=== PATIENT | male | born 1945 | race Caucasian/White ===

== ENCOUNTER 2020-03-25 09:03 | Emergency (ER) | payer MEDICARE, SELFPAY ==
[2020-03-25 09:27] VITALS: BP 129/76; PULSE 60; RESP 11; BMI 23.2
[2020-03-25] MEDS: ondansetron HCL 4 MG/2 ML VIAL IVPUSH (09:46)
[2020-03-25] MEDS: Morphine Sulfate 4 MG/ML CARTRIDGE 2 MG IVPUSH (09:46)
[2020-03-25 09:55] VITALS: BP 114/59; PULSE 59; RESP 11; TEMP 36.8; O2SAT 97
[2020-03-25] MEDS: propofoL 200 MG/20 ML VIAL 100 MG IVPUSH (10:00)
--- NOTE | 2020-03-25 10:02 | XR_ITS ---
EXAMINATION: XR SHOULDER, RIGHT CLINICAL INFORMATION: Post reduction. COMPARISON: None TECHNIQUE: Two views of the right shoulder. FINDINGS: There is normal glenohumeral alignment without any fracture, dislocation or subluxation. The AC joint appears unremarkable. The soft tissues are normal. XR/XR shoulder RT min 2V IMPRESSION: Unremarkable right shoulder joint.
--- NOTE | 2020-03-25 10:02 | ED.EXTPRO ---
HPI - Extremity Problem General Chief complaint: Extremity Injury, Upper Stated complaint: shoulder dislocation Time Seen by Provider: 03/25/20 09:39 Source: patient Mode of arrival: ambulatory Limitations: no limitations History of Present Illness HPI Narrative: patient while cleaning the kitchen lost balance and fell with an extended right hand and dislocated his right shoulder this happened her 1st time. Patient went to [facility] read the x-ray which showed any fracture pain. Patient denies any other injury MD Complaint: extremity pain Onset (ago): hour(s) (3) Pain Consistency: constant Location: right Related Data Home Medications Medication Instructions Recorded Confirmed gabapentin 03/25/20 omeprazole 03/25/20 vitamin A-vitamin D3 03/25/20 03/25/20 Allergies Allergy/AdvReac Type Severity Reaction Status Date / Time No Known Allergies Allergy Verified 03/25/20 09:32 Review of Systems Review of Systems: REVIEW OF SYSTEMS: Pertinent positives and negatives are stated above in the history. GEN: no fevers, chills, fatigue HEENT: no nasal congestion, sore throat, ear pain NEURO: no headache, dizziness, focal weakness PULM: no cough, shortness of breath CV: no chest pain, palpitations, LE edema ABD: no abdominal pain, nausea, vomiting, diarrhea : no dysuria, urgency, frequency SKIN: no rash ROS otherwise negative x 10 PMFSH Past Medical History Medical History (Updated 03/25/20 @ 10:59 by Catarino Elizabeth MD) H/O cardiac pacemaker Social History Social History Smoked in Last 30 Days: No Use of substances other than those prescribed or required for medical reasons: No Advance Directives: No Advance Directives Information Provided: Yes Physical Exam Vital Signs: Vital Signs: Last Vital Signs Temp 98.2 F 03/25/20 09:55 Pulse 59 03/25/20 10:20 Resp 10 L 03/25/20 10:20 BP 108/62 03/25/20 10:20 Pulse Ox 100 03/25/20 10:05 Body Mass Index 23.2 Const: General: cooperative, healthy appearing and in distress moderate Orientation/consciousness: oriented to person, oriented to place, oriented to time and patient oriented x3 HENMT: Head: Yes normal to inspection Ears: hearing grossly normal bilaterally Eyes: General: appearance normal, both eyes and all related structures Chest: Chest palpation & inspection: normal inspection of the chest Resp: Effort & Inspection: normal respiratory effort Auscultation: clear to auscultation bilaterally Cardio: Palpation: normal PMI Rate: regular rate Rhythm: regular rhythm Heart sounds: S1 normal heart sound present and S2 normal heart sound present GI: Inspection: Yes normal to inspection Palpation (GI): Soft to palpation and nontender : General: Yes no CVA tenderness Back/Spine/Pelvis: Back: no CVA tenderness Thoracic/Lumbar Spine: thoracic and lumbar spine normal to inspection Neuro: General: oriented to person, oriented to place, oriented to time, patient oriented x3 and gait normal Extrem: Shoulder/upper arm images: 1. squared right shoulder normal deltoid sensation limited range of movement with pain Procedures Orthopedic Joint Reduction Joint #1: Time Out Performed: Yes Side: right Joint Reduction Location: shoulder Analgesia: procedural sedation Shoulder Technique Used (if applicable): external rotation Post-reduction neuro exam: intact Post-reduction vascular: intact Post Reduction X-Ray Obtained: Yes Post Reduction X-Ray Results: reduced Splint Applied: Yes Patient Tolerated Procedure: well Procedural Sedation Indication: fracture/dislocation reduction ASA Class: I Time of Last PO Intake: 20:34 Preparation: monitor technician applied, pulse oximeter and capnometry used IV Propofol dose (mg): 50 Patient Tolerated Procedure: well Complications: none MDM - Extremity (Nontraumatic) MDM Narrative Medical decision making narrative: patient with right shoulder anterior dislocation shoulder reduced under conscious sedation using external rotation technique patient tolerated the procedure well no neurovascular deficit patient had a sling which was reapplied Discharge Plan Discharge Clinical Impression: Dislocation of shoulder region Patient Disposition: Home, Self-Care Instructions: Shoulder Dislocation (ED) Additional Instructions: wear sling for support. Avoid right arm lifting above head for next 2 weeks. Tylenol/Motrin for pain. Prescriptions: No Action gabapentin RF: 0 omeprazole RF: 0 vitamin A-vitamin D3 RF: 0 Referrals: Ever Keller MD [Physician] - 2 weeks Interventions: ED Discharge Assessment Last Done: 03/25/20 11:26 Discharge Date/Time: 03/25/20 11:27
[2020-03-25 10:05] VITALS: BP 120/56; PULSE 59; RESP 18; O2SAT 100
[2020-03-25 10:10] VITALS: BP 101/49; PULSE 59; RESP 15
[2020-03-25 10:15] VITALS: PULSE 60; RESP 14
[2020-03-25 10:20] VITALS: BP 108/62; PULSE 59; RESP 10
== END 2020-03-25 11:27 | disposition home or self-care (01) ==
PROVIDERS: Emergency Provider Internal Medicine; PCP Nurse Practitioner Family
DX: S43.004A Unspecified dislocation of right shoulder joint, initial encounter (principal); M25.511 Pain in right shoulder; W01.0XXA Fall on same level from slipping, tripping and stumbling without subsequent striking against object, initial encounter; Y93.9 Activity, unspecified; Y92.000 Kitchen of unspecified non-institutional (private) residence as the place of occurrence of the external cause; Z79.899 Other long term (current) drug therapy
CPT/HCPCS: 23650; 73030; 96374; 96375; 99152; 99284; 99285; J2270; J2405

== ENCOUNTER 2021-04-05 10:13 | Emergency (ER) | payer OTHER, SELFPAY ==
--- NOTE | ~2021-04-05 | XR_ITS ---
EXAMINATION: XR CHEST CLINICAL INFORMATION: Cough and congestion. Negative Covid. COMPARISON: None TECHNIQUE: 2 views of the chest were obtained. FINDINGS: No significant abnormality is noted involving the heart, lungs, mediastinum, bony thorax or soft tissues. There are dual pacer electrodes in right atrium and right ventricle. XR/XR chest 2V IMPRESSION: Unremarkable chest examination.
[2021-04-05 11:18] VITALS: BP 109/77; PULSE 69; RESP 18; TEMP 37.1; O2SAT 100; BMI 20.8
[2021-04-05 11:42] LABS: COVID-19 Test Negative (Negative)
--- NOTE | 2021-04-05 13:35 | ED_ITS ---
HPI - URI/Sore Throat General Chief Complaint: Upper Respiratory Symptoms Stated Complaint: Cold symptoms Time Seen by Provider: 04/05/21 13:35 Source: patient Mode of arrival: ambulatory History of Present Illness HPI Narrative: 75-year-old male with past medical history of pacemaker placement presenting to the ED complaining of productive cough, nasal congestion/rhinorrhea and sore throat x3 days. Denies fever/chills, ear pain, recent travel, CP/SOB, pedal edema MD elicited complaint: sore throat, rhinorrhea and nasal congestion Related Data Home Medications Medication Instructions Recorded Confirmed gabapentin 03/25/20 omeprazole 03/25/20 vitamin A-vitamin D3 03/25/20 03/25/20 Previous Rx's Medication Instructions Recorded benzocaine 15 mg-menthol 20 mg 1 jose miguel MUCOUS MEMBRANE Q2-4H PRN 04/05/21 lozenges (Cepacol Instamax Sore #16 ea Throat) benzonatate 200 mg capsule 200 mg PO TID PRN #20 cap 04/05/21 fluticasone propionate 50 2 spray INTRANASAL DAILY #16 g 04/05/21 mcg/actuation nasal spray,suspension (Flonase Allergy Relief) Allergies Allergy/AdvReac Type Severity Reaction Status Date / Time No Known Allergies Allergy Verified 03/25/20 09:32 Review of Systems Review of Systems: Constitutional:No Fever, No Chills, No Fatigue, No Malaise ENT/Mouth: No Ear Pain, + Nasal Congestion, No Sinus Pain, No Hoarseness, + sore throat, + Rhinorrhea, No Swallowing Difficulty Eyes: No Eye Pain, No Swelling, No Redness, No Foreign Body, No Discharge, No Vision Changes Cardiovascular: No Chest Pain, No SOB, No Edema, No Palpitations Respiratory: + Cough, + Sputum, No Dyspnea Gastrointestinal: No Nausea, No Vomiting, No Diarrhea, No Constipation, No Abdominal pain Genitourinary: No Dysuria, No Urinary Frequency, No Hematuria, No Flank Pain Musculoskeletal: No joint pain, No Myalgias Skin: No Skin Lesions, No rash Neuro: No Weakness, No Headache Yes all other systems are reviewed and are negative PMFSH Past Medical History Attestation statement: The following information was validated with the patient. Medical History H/O cardiac pacemaker Social History Social History Advance Directives: Yes Advance Directives Information Provided: No Advance Directives on File: No Physical Exam Vital Signs: Vital Signs: Last Vital Signs Temp 98.7 F 04/05/21 11:18 Pulse 69 04/05/21 11:18 Resp 18 04/05/21 11:18 BP 109/77 04/05/21 11:18 Pulse Ox 100 04/05/21 11:18 BMI result Body Mass Index 20.8 Const: General: cooperative, healthy appearing, no acute distress, alert and awake Orientation/consciousness: patient oriented x3 Limitations: no limitations HENMT: Head: Yes normal to inspection Ears: hearing grossly normal bilaterally, external ears normal and TM's normal bilaterally General nose exam: Normal external nose present and Nasal discharge present Face and sinus: Yes normal facial exam Mouth: Normal oral and palatal mucosa present Throat: Yes posterior oropharynx normal, Yes tonsils normal, Yes uvula midline, No abnormal tonsil and No peritonsillar mass Eyes: General: appearance normal, both eyes and all related structures EOM: EOMs intact bilaterally Neck: Neck: Yes normal visual inspection, Yes no meningeal signs, Yes trachea midline and Yes supple Resp: Effort & Inspection: normal respiratory effort Auscultation: clear to auscultation bilaterally, no rales, no rhonchi and no wheezes Cardio: Rate: regular rate Heart sounds: S1 normal heart sound present and S2 normal heart sound present : General: Yes no CVA tenderness Back/Spine/Pelvis: Back: no CVA tenderness Skin: Rashes: no rashes Wounds: no wounds Neuro: General: patient oriented x3 and no meningeal signs Gait exam (Neuro): Normal gait present Extrem: General: Yes normal to inspection, Yes no pedal edema and Yes no calf tenderness Course Course Course Narrative: XR chest 2V IMPRESSION: Unremarkable chest examination. -rapid strep negative. Results discussed with patient including worsen signs and symptoms and strict return precautions and need follow-up with PCP MDM - URI/Sore Throat MDM Narrative Medical decision making narrative: 75-year-old male with past medical history of pacemaker placement presenting to the ED complaining of productive cough, nasal congestion/rhinorrhea and sore throat x3 days. On exam vital signs stable, NAD/well-appearing, physical exam as above. Concern for viral syndrome/COVID- 19. Rule in pneumonia. Low concern for ACS/PE or CHF. Plan : COVID-19 testing, rapid strep, CXR Differential Diagnosis Differential diagnosis: Likely upper respiratory infection, sinusitis, viral infection and pharyngitis Medical Records Attestation: I reviewed the patient's medical records. Lab Data Attestation: I reviewed the patient's lab results. Labs: Lab Results 04/05/21 Range/Units 11:21 COVID-19 ([place]) Negative (Negative) COVID-19 Clin Com See Note Discharge Plan Discharge Clinical Impression: Upper respiratory infection Qualifiers: URI type: unspecified viral URI Qualified Code(s): J06.9 - Acute upper respiratory infection, unspecified Patient Disposition: Home, Self-Care Instructions: Viral Syndrome (ED) Additional Instructions: You tested negative for COVID-19. Your x-ray was unremarkable Flonase and nasal decongestion, take as needed/prescribed Tessalon Perles are for cough Cepacol lozengers will help with sore throat In addition take Tylenol/ Motrin as needed Rest, stay hydrated If symptoms persist or worsen please return to the emergency department Prescriptions: New benzonatate 200 mg capsule 200 mg PO TID PRN (Reason: cough) Qty: 20 RF: 0 fluticasone propionate [Flonase Allergy Relief] 50 mcg/actuation spray,suspension 2 spray intranasal DAILY Qty: 16 RF: 0 Cepacol Instamax Sore Throat 15-20 mg lozenge 1 jose miguel mucous membrane Q2-4H PRN (Reason: sore throat) Qty: 16 RF: 0 No Action gabapentin RF: 0 omeprazole RF: 0 vitamin A-vitamin D3 RF: 0 Referrals: Physician,Unknown J [Primary Care Provider] - 2 days
[2021-04-05 14:21] LABS: IDNOW Serial# 08D9AD1C; Strep A Nucleic Acid Negative (Negative)
== END 2021-04-05 14:05 | disposition home or self-care (01) ==
PROVIDERS: Physician Assistant; Emergency Provider Emergency Medicine
DX: J06.9 Acute upper respiratory infection, unspecified (principal); Z20.822 Contact with and (suspected) exposure to COVID-19; J02.9 Acute pharyngitis, unspecified; Z95.0 Presence of cardiac pacemaker
CPT/HCPCS: 36415; 71046; 87635; 87651; 99283

== ENCOUNTER 2023-07-23 08:13 | Emergency (ER) | payer OTHER, SELFPAY ==
[2023-07-23 08:20] VITALS: BP 134/71; PULSE 71; RESP 17; TEMP 36.6; O2SAT 96; BMI 20.5
--- NOTE | 2023-07-23 08:29 | ED_ITS ---
HPI - General Adult General Chief complaint: Wound/Laceration Stated complaint: Nose issues Time Seen by Provider: 07/23/23 08:29 Source: patient Mode of arrival: ambulatory Limitations: no limitations History of Present Illness HPI narrative: Patient is a 77 year old assigned male at with a history of BCC presenting to the emergency department today with a recurrent left sided nasal wound. Patient states that for many years he has had issues with the left side of his nose. Patient states that he has seen dermatologists and ENT specialists for this and previously had BCC removed from this same side. Patient states that over the last few days he has had a recurrence of the wound with some pus coming out. Patient denies any dizziness, lightheadedness, abdominal pain, nausea, vomiting, fever, chills, blurry vision, double vision, loss of vision, chest pain, difficulty breathing, shortness of breath, back pain, night sweats, pain with urination, increased urinary frequency, increased urinary urgency, blood in his urine or stool, syncope or a near syncopal episode, recent trauma or falls, bowel incontinence, bladder incontinence, bowel retention, bladder retention, or any other complaints at this time. Relieving factors: none Exacerbating factors: none Associated symptoms: denies other symptoms Treatments prior to arrival: none Related Data Home Medications Medication Instructions Recorded Confirmed gabapentin 03/25/20 omeprazole 03/25/20 vitamin A-vitamin D3 03/25/20 03/25/20 Previous Rx's Medication Instructions Recorded benzocaine 15 mg-menthol 20 mg 1 jose miguel mucous membrane Q2-4H PRN 04/05/21 lozenges (Cepacol Instamax Sore sore throat #16 ea Throat) benzonatate 200 mg capsule 200 mg PO TID PRN cough #20 caps 04/05/21 fluticasone propionate 50 2 spray intranasal DAILY #16 grams 04/05/21 mcg/actuation nasal spray,suspension (Flonase Allergy Relief) cephalexin 500 mg capsule 500 mg PO Q6H 7 days #28 caps 07/23/23 Allergies Allergy/AdvReac Type Severity Reaction Status Date / Time No Known Allergies Allergy Verified 07/23/23 08:20 Review of Systems 2 Constitutional: Constitutional: Reports no additional constitutional complaints, Denies chills, Denies fever(s) and Denies night sweats Eyes: Eyes: Reports no additional eye complaints, Denies blurry vision, Denies change in vision, Denies diplopia, Denies eye discharge, Denies loss of vision and Denies eye pain ENT: Denies dizziness Comments: left sided nasal wound Cardiovascular: Cardiovascular: Reports no additional cardiovascular complaints, Denies chest pain, Denies lightheadedness, Denies Loss of Consciousness and Denies dyspnea Respiratory: Respiratory: Reports no additional respiratory complaints and Denies dyspnea Gastrointestinal: Gastrointestinal: Reports no additional gastrointestinal complaints, Denies abdominal pain, Denies melena, Denies hematochezia, Denies change in bowel habits and Denies change in stool character Genitourinary: Genitourinary: Reports no additional male genitourinary complaints, Denies hematuria, Denies oliguria, Denies difficulty urinating, Denies dysuria, Denies urinary frequency, Denies urinary hesitancy, Denies urinary incontinence and Denies urinary urgency Musculoskeletal: Musculoskeletal: Reports no additional musculoskeletal complaints, Denies numbness and Denies tingling Neurologic: Denies dizziness, Denies loss of vision, Denies numbness and Denies tingling Psychiatric: Psychiatric: Reports no additional psychiatric complaints Endocrine: Endocrine: Reports no additional endocrine complaints Hematologic/Lymphatic: Hematologic/Lymphatic: Reports no additional hematologic/lymphatic complaints Allergic/Immunologic: Allergic/Immunologic: Reports no additional allergic/immunologic complaints PMFSH Past Medical History Attestation statement: The following information was validated with the patient. Source: old records reviewed and nursing notes reviewed Medical History H/O cardiac pacemaker Social History Social History Advance Directives: No Advance Directives Information Provided: Yes Physical Exam ED Vital Signs: Vital Signs - 24 hr 07/23/23 08:20 Temperature 98 F Pulse Rate 71 Respiratory Rate 17 Blood Pressure 134/71 Pulse Oximetry 96 Oxygen Delivery Method Room Air BMI result Body Mass Index 20.5 Const General: cooperative, no acute distress, alert and awake Nutritional Appearance: well nourished Orientation/consciousness: patient oriented x3 Limitations: no limitations HENMT Head: Yes normal to inspection and Yes atraumatic Ears: hearing grossly normal bilaterally and external ears normal General nose exam: no nasal discharge noted and no epistaxis Nose image: 2 1. small wound with minimal erythema, no drainage Face and sinus: No abrasion and No laceration Mouth: Normal oral and palatal mucosa present, no drooling and no muffled voice Eyes General: appearance normal, both eyes and all related structures Periorbital: periorbital findings normal Eyelids: Yes eyelids normal Conjunctivae: conjunctivae normal Pupils: Equal, round and reactive pupils present EOM: EOMs intact bilaterally Neck Neck: Yes normal visual inspection, Yes full ROM and Yes no lymphadenopathy Chest Chest palpation & inspection: normal inspection of the chest Resp Effort & Inspection: normal respiratory effort and able to speak in complete sentences GI Inspection: Yes normal to inspection Neuro General: patient oriented x3 and moves all extremities Cranial nerves: Yes Equal, round and reactive pupils present Cognition (Neuro): normal cognition Motor exam (neuro): 5/5 motor strength present throughout Sensory Exam: Normal double simultaneous stimulation for sensation Coordination: [id number] test normal Extrem General: Yes normal to inspection, Yes full ROM and Yes capillary refill normal Psych Appearance: grossly normal Mental Status: mental status grossly normal Affect: normal affect Attitude: cooperative Thought process: Normal thought process present Thought content: Normal thought content present Insight: Good insight present (Psych) Medical Decision Making Medical Decision Making MDM Narrative: Patient is a 77 year old assigned male at with a history of BCC presenting to the emergency department today with a recurrent left nasal wound. Patient's physical exam was as noted in the physical exam portion of this note. I explained my physical exam findings to the patient. I answered all questions asked by the patient. I stressed the importance of the patient taking his medication as prescribed. I stressed the importance of the patient following up with his primary care provider, an ENT specialist, and a submarine worker. I stressed the importance of the patient returning to the emergency department immediately if his symptoms were to worsen or if he were to develop any dizziness, shortness of breath, difficulty breathing, chest pain, blurry vision, loss of vision, nausea, vomiting, abdominal pain, fever, chills, back pain, or any other complaints. Patient verbalized agreement and understanding with this treatment plan and discharge. Differential Diagnosis Differential Diagnoses: The differential diagnosis associated with the presentation includes Cellulitis Nasal wound Recurrent nasal wound Admission/Observation Consideration of admission/observation: Escalation of care including admission/observation considered Patient would have been admitted to the hospital had his clinical presentation warranted hospital admission. Prescription Management I considered prescription management with: Antibiotic (patient prescribed an antibiotic for left nasal cellulitis) Discharge Plan Discharge Clinical Impression: Cellulitis Patient Disposition: Home, Self-Care Instructions: Cellulitis (DC) Additional Instructions: Follow up with your primary care provider, an ENT, and a submarine worker. Return to the emergency department immediately if your symptoms worsen or if you develop any dizziness, shortness of breath, difficulty breathing, chest pain, blurry vision, loss of vision, nausea, vomiting, abdominal pain, fever, chills, back pain, or any other complaints. Prescriptions: New cephalexin 500 mg capsule 500 mg PO Q6H 7 Days Qty: 28 0RF No Action gabapentin omeprazole vitamin A-vitamin D3 benzonatate 200 mg capsule 200 mg PO TID PRN (Reason: cough) Qty: 20 0RF fluticasone propionate [Flonase Allergy Relief] 50 mcg/actuation spray,suspension 2 spray intranasal DAILY Qty: 16 0RF Rx Instructions: administer into each nostril Cepacol Instamax Sore Throat 15-20 mg lozenge 1 jose miguel mucous membrane Q2-4H PRN (Reason: sore throat) Qty: 16 0RF Referrals: [facility] [Provider Group] (Call to establish and follow up with a submarine worker.) [facility] [place] [facility] [Provider Group] (Call to establish and follow up with a primary care provider. If you already have a primary care provider, please follow up with them.) [facility] [place] Primary Care, Annetta [Provider Group] (Call to establish and follow up with a primary care provider. If you already have a primary care provider, please follow up with them.) [facility] [place] Primary Care,Juan [Provider Group] (Call to establish and follow up with a primary care provider. If you already have a primary care provider, please follow up with them.) Tony Barker [Physician] - (Call to establish and follow up with an ENT.) Stand Alone Forms: Work/School Release Print Language: [place]
[2023-07-23 08:56] VITALS: BP 134/71; PULSE 71; RESP 18; TEMP 36.7; O2SAT 96
== END 2023-07-23 08:57 | disposition home or self-care (01) ==
PROVIDERS: Emergency Provider Emergency Medicine
DX: J34.0 Abscess, furuncle and carbuncle of nose (principal); Z85.828 Personal history of other malignant neoplasm of skin
CPT/HCPCS: 99282; 99283

== ENCOUNTER 2024-02-23 13:02 | Outpatient (REF) | payer OTHER, SELFPAY ==
[2024-02-23 13:33] LABS: MANUAL DIFF FLAG NO
[2024-02-23 14:10] LABS: Basophils Percent Auto 0.6 % (0-2); Eosinophils Absolute Auto 0.1 X10*3/uL (0.0-0.4); Eosinophils Percent Auto 1.4 % (0-4); Hematocrit 43.6 % (42.0-52.0); Hemoglobin 14.9 g/dl (14.0-18.0); Imm Gran Abs Auto 0.01 X10*3/uL (0.00-0.03); Imm Gran Pct Auto 0.3 % (0.0-0.4); Lymphocytes Absolute Auto 1.3 X10*3/uL (1.2-4.9); Mean Corpuscular HGB Conc 34.2 g/dl (31.0-36.0); Mean Corpuscular Hemoglobin 30.5 pg (27.0-33.0); Mean Corpuscular Volume 89.3 fL (80.0-98.0); Mean Platelet Volume 10.1 fL (9.4-12.4); Monocytes Absolute Auto 0.3 X10*3/uL (0.1-1.2); Monocytes Percent Auto 8.6 % (2-11); Neutrophils Absolute Auto 1.8 x10*3/uL (2.0-8.3); Neutrophils Percent Auto 52.1 % (45-73); Platelet Count 156 X10*3/uL (160-400); Red Blood Count 4.88 X10*6/uL (4.60-5.80); Red Cell Distribution Width 13.3 % (11.0-16.0); White Blood Count 3.5 X10*3/uL (4.8-10.8)
[2024-02-23 15:16] LABS: Anion Gap 9 (12-20); Blood Urea Nitrogen 20 mg/dL (9-16); Calcium 9.5 mg/dL (8.4-10.2); Carbon Dioxide 31 mmol/L (22-29); Chloride 109 mmol/L (96-108); Estimated Glomerular Filt Rate > 60; Glucose Random 82 mg/dL (60-115); Potassium 4.2 mmol/L (3.3-5.1); Sodium 145 mmol/L (135-145)
[2024-02-23 15:21] LABS: TSH reflex Free T4 0.91 uIU/mL (0.32-4.0); Vitamin D 25-OH Total 35.2 ng/mL (>30)
[2024-02-23 15:42] LABS: Erythrocyte Sedimentation Rate 2 MM/HR (0-15)
[2024-02-23 15:52] LABS: Folate 9.7 ng/mL (> or = 4.0); Vitamin B12 565 pg/mL (200-900)
[2024-02-26 17:02] LABS: Homocysteine 9.5 umol/L (<11.4)
[2024-02-27 23:28] LABS: Methylmalonic Acid 223 nmol/L (69-390)
== END 2024-02-23 13:03 | disposition home or self-care (01) ==
LOC: HO.LAB 13:02
PROVIDERS: Visit Provider Psychiatry & Neurology Neurology
DX: G31.84 Mild cognitive impairment of uncertain or unknown etiology (principal)
CPT/HCPCS: 36415; 80048; 82306; 82607; 82746; 83090; 83921; 84443; 85025; 85652

== ENCOUNTER 2024-03-01 12:21 | Outpatient (REF) | payer OTHER, SELFPAY | END 2024-03-01 12:22 | disposition home or self-care (01) | LOC: HO.CT 12:21 | PROVIDERS: Visit Provider Psychiatry & Neurology Neurology | DX: G31.84 Mild cognitive impairment of uncertain or unknown etiology (principal) | CPT/HCPCS: 70450 ==

== ENCOUNTER 2024-11-14 08:16 | Outpatient (AMB) | payer OTHER, SELFPAY ==
--- NOTE | 2024-11-14 08:31 | A.OFFVIS_ITS ---
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 His had noted that he loses his train of thought in the middle of a sentence and stops. He still functions fairly well, keeping up with house and yard work. He has a Master's degree in mathematics and finance from [employer]. 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 He was here with his . He was doing okay. He was taking memantine twice a day and donepezil daily. No medication side effects. Memory was about the same. He has been working on writing a paper about his time in the [place] for the [employer]. He was staying active around the house. No falls. Appetite was okay. Sleep was okay. Mood was okay. [facility] Medical History (Updated 11/14/24 @ 08:35 by Esha Paul CNP) Hereditary and idiopathic neuropathy, unspecified Peripheral neuropathy MCI (mild cognitive impairment) H/O cardiac pacemaker Review of Systems Const Denies chills, Denies daytime sleepiness, Denies difficulty sleeping, Denies fatigue, Denies fever(s), Denies frequent falls, Denies headache(s), Denies in creased appetite, Denies poor appetite, Denies snoring, Denies weakness, Denies weight gain and Denies weight loss Eyes Denies loss of vision ENT Denies vertigo, Denies dizziness and Denies headache(s) Card Denies chest pain at rest, Denies chest pain with activity, Denies syncope, Denies leg edema and Denies palpitations Resp Denies snoring GI Denies constipation, Denies heartburn, Denies diarrhea and Denies nausea Denies urinary frequency, Denies urinary incontinence and Denies urinary urgency Musc Denies abnormal gait, Reports numbness and Reports tingling Skin/Breast Denies dry skin and Denies rash Neuro Denies abnormal gait, Denies vertigo, Denies dizziness, Denies syncope, Denies frequent falls, Denies headache(s), Denies lack of coordination, Denies loss of vision, Reports memory loss, Reports numbness, Denies restless legs, Denies seizure-like activity, Reports tingling, Denies paresthesias, Denies tremor(s) and Denies weakness Psych Denies anxiety, Denies depression, Denies auditory hallucinations, Reports memory loss, Denies visual hallucinations and Denies suicidal ideation Endo Denies fatigue and Denies palpitations Physical Exam Const Other: General Appearance:? normal, in no acute distress. Heart:? S1, S2 normal, no murmurs. Lungs:? clear anteriorly and posteriorly. Musculoskeletal:? normal. Extremities:? no edema. Psych:? alert, as below Neuro Other: Abnormal Neurological Findings:?MMSE 25/30 Mental Status: alert, as below Cranial Nerves: Pupils are equal, round, and reactive to light. External ocular muscles are intact. Visual white are full, no ptosis. Face is symmetrical, no facial weakness or droop. Facial sensations are normal. Tongue protrudes in midline. Palate elevates symmetrically. Shoulder shrugging is normal Motor Examination: Normal muscle tone, bulk and strength. No atrophy or fasciculations. No drift of the extended upper extremities. DTR 2+. Plantars are flexor. Straight Leg Raisin degrees. Sensory Exam: Normal light touch, temperature, pinprick, vibration, and joint- position sensations. Rhomberg sign is absent. Coordination: No ataxia. No titubation. Bxvkae-vb-avsd, llrz-[id number]-yndt test, and rapid alternating movements were normal. Gait Exam: Within normal limits. Cerebellar Signs: [id number] and [id number] is normal. No dysdiadochokinesia. Extrapyramidal System: No tremor, rigidity with normal facial expressions. No bradykinesia. No bradyphrenia. Normal arm swing and posture. No propulsion or retropulsion. Speech: Normal. No dysphasia or dysarthria. MMSE Level of Consciousness: Alert. Orientation: Knows correct year, month, day, date, and season. Knows correct city, county and state. Knows correct location and floor. Registration: Able to register 3 objects. Attention: Serial 7's performed accurately to 93. Recall: Able to recall 2 out of 3 objects. Language: Normal spontaneous speech, fluency, repetition, naming, comprehension, reading, and writing. Total Score: 25/30. Assessment & Plan Assessment & Plan (1) MCI (mild cognitive impairment): Code(s): G31.84 - Mild cognitive impairment of uncertain or unknown etiology Category: Medical Plan: Continue donepezil 10mg 1 tablet at bedtime Continue memantine 5mg 1 tablet twice a day Stay physically and socially active. 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 (3) Hereditary and idiopathic neuropathy, unspecified: Code(s): G60.9 - Hereditary and idiopathic neuropathy, unspecified Category: Medical Plan: . 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
== END 2024-11-14 08:57 | disposition home or self-care (01) ==
LOC: HO.HSM 08:16
PROVIDERS: PCP Internal Medicine; Visit Provider Registered Nurse
DX: G31.84 Mild cognitive impairment of uncertain or unknown etiology (principal); G62.2 Polyneuropathy due to other toxic agents; G60.9 Hereditary and idiopathic neuropathy, unspecified
CPT/HCPCS: 99213

== ENCOUNTER → 2024-11-14 08:16 | Outpatient (BNVA) | payer OTHER, SELFPAY | PROVIDERS: PCP Internal Medicine; Visit Provider Registered Nurse | DX: G31.84 Mild cognitive impairment of uncertain or unknown etiology (principal); G62.2 Polyneuropathy due to other toxic agents; G60.9 Hereditary and idiopathic neuropathy, unspecified | CPT/HCPCS: 99212 ==